=== PATIENT | female | born 1975 | race Caucasian/White ===

== ENCOUNTER 2020-05-30 10:30 | Outpatient (RCR) | payer BC | END 2020-05-30 11:00 | disposition home or self-care (01) | LOC: PT 10:30 | DX: M54.5 Low back pain (principal) ==

== ENCOUNTER → 2022-02-16 | Outpatient (CLI) | payer BC | LOC: MAMMO 14:00 | DX: Z12.31 Encounter for screening mammogram for malignant neoplasm of breast (principal) ==

== ENCOUNTER → 2022-03-03 | Outpatient (CLI) | payer BC | LOC: RAD 09:41 | DX: M25.562 Pain in left knee (principal) ==

== ENCOUNTER → 2024-11-17 | Outpatient (CLI) | payer OTHER ==
[~2024-11-17] MED LIST: HCTZ 25MG25 MG PO; METOPROLOL TAR100 M1; POTASSIUM CHLO10 ME8 PO; ROSUVASTATIN CA20 MG; VENLAFAXINE HY150 MG
== END ==
LOC: RAD 08:33
DX: D26.1 Other benign neoplasm of corpus uteri (principal)